=== PATIENT | male | born 1945 | race Caucasian/White ===

== ENCOUNTER → 2016-09-21 | Outpatient (CLI) | payer OTHER ==
[~2016-09-21] MED LIST: ALLO100T30 PO; ASPI-515 PO; CHOL200024 PO; FLUT16SP NAS; METO-93 PO
== END | disposition home or self-care (01) ==
LOC: CARD 13:38
PROVIDERS: ATTEND Internal Medicine
DX: Z02.9 Encounter for administrative examinations, unspecified (principal)

== ENCOUNTER → 2016-10-14 | Outpatient (CLI) | payer OTHER | END | disposition home or self-care (01) | LOC: CFH 14:14 | PROVIDERS: ATTEND Internal Medicine | DX: I08.3 Combined rheumatic disorders of mitral, aortic and tricuspid valves (principal); I10 Essential (primary) hypertension | CPT/HCPCS: 93306 ==

== ENCOUNTER 2016-11-06 04:28 | Emergency (ER) | payer OTHER ==
[~2016-11-06] VITALS: Ht 188 cm; Wt 87.0 kg
[2016-11-06] MEDS ORDERED: ONDANSETRON 2MG/ML, 2ML ONE (05:12)
[2016-11-06] MEDS ORDERED: MORPHINE SULFATE 4 MG/ML, 1ML ONE ×2 (05:12→06:29)
[2016-11-06] MEDS ORDERED: ONDANSETRON 2MG/ML, 2ML IVPush ONE (05:30)
[2016-11-06] MEDS ORDERED: SODIUM CHLORIDE FLUSH 10ML SYR IVF ONE (05:30)
[2016-11-06] MEDS ORDERED: MORPHINE SULFATE 4 MG/ML, 1ML IVPush PRN (05:30)
[2016-11-06] MEDS ORDERED: ACET325T14 PO (05:45)
[2016-11-06 05:47] LABS: BLOOD UREA NITROGEN 6 mg/dL (7-18)
[2016-11-06] MEDS ORDERED: OMNIPAQUE 350 MG/ML, 100ML BOTTLE ONE (06:11)
[2016-11-06] MEDS ORDERED: SODIUM CHLORIDE 0.9% 1,000ML IVBOLUS ONE (06:30)
[2016-11-06 06:40] VITALS: BP 182/90
== END 2016-11-06 08:01 | disposition home or self-care (01) ==
LOC: ED 05:53
DX: G43.C0 Periodic headache syndromes in child or adult, not intractable (principal); I10 Essential (primary) hypertension
CPT/HCPCS: 36415; 70450; 70498; 71010; 80048; 82040; 85025; 93005; 96361; 96374; 96375; 99285; J2405; J7030; Q9967

== ENCOUNTER → 2017-01-07 | Outpatient (CLI) | payer OTHER ==
[~2017-01-07] MED LIST changes: +ACET325T14 PO; +REGADENOSON 0.4 MG/5 ML SYRINGE ONE
== END | disposition home or self-care (01) ==
LOC: CFH 07:55
PROVIDERS: ATTEND Internal Medicine Cardiovascular Disease
DX: I71.4 Abdominal aortic aneurysm, without rupture (principal); I25.9 Chronic ischemic heart disease, unspecified; I10 Essential (primary) hypertension
CPT/HCPCS: 78452; 93017; 93978; A9502; J2785

== ENCOUNTER 2017-03-05 05:41 | Emergency (ER) | payer OTHER ==
[~2017-03-05] VITALS: Ht 185.4 cm; Wt 75.7 kg
[~2017-03-05 05:41] MED LIST changes: -REGADENOSON 0.4 MG/5 ML SYRINGE ONE
[2017-03-05] MEDS ORDERED: MORPHINE SULFATE 4 MG/ML, 1ML ONE (06:41)
[2017-03-05] MEDS ORDERED: NITROGLYCERIN OINT 2%, 1GM TP ONE (06:42)
[2017-03-05] MEDS ORDERED: MAALOX/HYOSCYAMINE/LIDOCAINE 45 ML BTL ONE (06:42)
[2017-03-05] MEDS ORDERED: ASPIRIN 81 MG TABLET CHEW ONE (06:42)
[2017-03-05] MEDS: MORPHINE SULFATE 4 MG/ML, 1ML IVPush PRN ×2 (06:50→07:23)
[2017-03-05] MEDS ORDERED: ASPIRIN 81 MG TABLET CHEW PO ONE (07:00)
[2017-03-05] MEDS ORDERED: MAALOX/HYOSCYAMINE/LIDOCAINE 45 ML BTL PO ONE (07:00)
[2017-03-05 07:25] LABS: BLOOD UREA NITROGEN 11 mg/dL (7-18)
[2017-03-05 07:26] LABS: IS PT STATUS REG ER OR PRE ER? YES
[2017-03-05 07:37] LABS: HEMATOCRIT 43.3 % (39.2-51.8); HEMOGLOBIN 14.7 g/dL (13.7-18.0)
[2017-03-05] MEDS ORDERED: POTASSIUM CHLORIDE 20 MEQ TAB.ER.PRT PO ONE (08:30)
[2017-03-05 08:33] VITALS: BP 169/88
[2017-03-05] MEDS ORDERED: PRAV10TA2 PO (08:33)
[2017-03-05] MEDS ORDERED: POTASSIUM CHLORIDE 20 MEQ TAB.ER.PRT ONE (08:35)
[2017-03-05] MEDS ORDERED: NS + 40MEQ KCL 1,000 ML IV STA (08:39)
[2017-03-05] MEDS ORDERED: NITROGLYCERIN OINT 2%, 1GM TP SCH (09:00)
== END 2017-03-05 09:27 | disposition home or self-care (01) ==
LOC: ED 06:03 → EDIP 08:28 → UNDOADMIN 08:28 → ED 09:21
DX: R07.2 Precordial pain (principal); R10.13 Epigastric pain; I10 Essential (primary) hypertension; Z87.891 Personal history of nicotine dependence
CPT/HCPCS: 36415; 71010; 80048; 82040; 84484; 85025; 93005; 96374; 96376

== ENCOUNTER → 2018-07-18 | Outpatient (CLI) | payer OTHER ==
[~2018-07-18] MED LIST changes: +PRAV10TA2 PO
== END | disposition home or self-care (01) ==
LOC: CFH 08:25
PROVIDERS: ATTEND Internal Medicine
DX: K80.20 Calculus of gallbladder without cholecystitis without obstruction (principal)
CPT/HCPCS: 76705

== ENCOUNTER 2019-01-15 16:05 | Emergency (ER) | payer MEDICARE ==
[~2019-01-15] VITALS: Ht 185.4 cm; Wt 71.7 kg
[2019-01-15 18:25] VITALS: BP 208/99
== END 2019-01-15 19:25 | disposition home or self-care (01) ==
LOC: ED 18:01
DX: N40.1 Benign prostatic hyperplasia with lower urinary tract symptoms (principal); R33.8 Other retention of urine; R79.89 Other specified abnormal findings of blood chemistry; I10 Essential (primary) hypertension; Z87.891 Personal history of nicotine dependence
CPT/HCPCS: 36415; 51702; 74176; 80053; 81001; 85025; 87086; 99284; J7040

== ENCOUNTER 2019-01-16 07:59 | Emergency (ER) | payer MEDICARE ==
[~2019-01-16] VITALS: Ht 185.4 cm; Wt 70.0 kg
[~2019-01-16 07:59] MED LIST changes: -FLUT16SP NAS; +FLUT16SP24 NAS
--- NOTE | 2019-01-16 08:16 | NUR ---
PT STATES " I WAS HERE LAST NIGHT FOR A CATHETER. I THINK I NEEDS TO BE ADJUSTED AND MY URINE IS DARKER". PT CHANING IN GOWN. WAITING FOR MD ORDERS.
[2019-01-16 08:44] LABS: CULTURE INDICATED? YES; MICROSCOPIC INDICATED
[2019-01-16] MEDS ORDERED: SODIUM CHLORIDE 0.9% 1,000ML IVBOLUS ONE (09:00)
[2019-01-16] MEDS ORDERED: SODIUM CHLORIDE FLUSH 10ML SYR IVF ONE (09:00)
--- NOTE | 2019-01-16 09:00 | NUR ---
PT RESTING COMFORTABLE. IV ESTABLISHED
[2019-01-16 09:32] LABS: BASOPHILS # (AUTO) 0.02 x10^3/uL (0-0.1); BASOPHILS % (AUTO) 0 % (0-1); EOSINOPHILS # (AUTO) 0.08 x10^3/uL (0-0.4); EOSINOPHILS % (AUTO) 1 % (1-7); LYMPHOCYTES # (AUTO) 0.73 x10^3/uL (1-3.4); LYMPHOCYTES % (AUTO) 9 % (22-44); MD NO; MEAN CORPUSCULAR HEMOGLOBIN 33.8 pg (27.5-34.5); MEAN CORPUSCULAR HGB CONC 31.9 g/dL (33.2-36.2); MEAN CORPUSCULAR VOLUME 106.1 fL (81-97); MEAN PLATELET VOLUME 6.7 fL (7.4-10.4); MONOCYTES # (AUTO) 0.48 x10^3/uL (0.2-0.8); MONOCYTES % (AUTO) 6 % (2-9); NEUTROPHILS # (AUTO) 6.39 x10^3/uL (1.8-6.8); NEUTROPHILS % (AUTO) 83 % (42-75); PLATELET COUNT 353 x10^3/uL (130-400); RED BLOOD COUNT 2.99 x10^6/uL (4.38-5.82); RED CELL DISTRIBUTION WIDTH 16.2 % (9.4-14.8)
[2019-01-16 09:42] LABS: ANION GAP 9 mmol/L (5-15); CHLORIDE 106 mmol/L (98-107)
[2019-01-16 09:44] LABS: CALCIUM 8.6 mg/dL (8.5-10.1); CREATININE 1.78 mg/dL (0.7-1.3)
--- NOTE | 2019-01-16 10:40 | NUR ---
MD AWARE OF BP IN 203/100. RN PERFORMED MANUAL BP 210/100. MEDICATED PER MD ORDER
--- NOTE | 2019-01-16 11:18 | NUR ---
PT CATHETER DRAINED. BLOOD TINGED 500 ML. EMPTIED 200 ML THAT WAS CLEAR URINE W SLIGHT BLOOD TINGED. BP BETTER AT 190/85. OK W OUT BLADDER IRRAGTION
[2019-01-16 11:37] VITALS: BP 112/60
--- NOTE | 2019-01-16 11:37 | NUR ---
Patient/Caregiver given discharge instructions and they have confirmed that they understand the instructions. Patient ambulatory with steady gait.
== END 2019-01-16 11:39 | disposition home or self-care (01) ==
LOC: ED 08:34
DX: N30.01 Acute cystitis with hematuria (principal); I11.0 Hypertensive heart disease with heart failure; I50.9 Heart failure, unspecified; Z87.891 Personal history of nicotine dependence
CPT/HCPCS: 36415; 51700; 76770; 80048; 81001; 82040; 85025; 87086; 99284; J7030